=== PATIENT | female | born 1995 | race Caucasian/White ===

== ENCOUNTER 2018-10-13 09:43 | Emergency (ER) | payer OTHER ==
[~2018-10-13] VITALS: Ht 175.3 cm; Wt 143.2 kg
[2018-10-13 09:49] VITALS: BP 120/72; TEMP 98.3
[2018-10-13 11:21] VITALS: PULSE 64
== END 2018-10-13 11:21 | disposition home or self-care (01) ==
LOC: COL.ER 09:43
DX: H18.822 Corneal disorder due to contact lens, left eye (principal); Z96.22 Myringotomy tube(s) status